=== PATIENT | female | born 1965 | race Caucasian/White ===

== ENCOUNTER → 2017-09-02 | Outpatient (CLI) | payer OTHER, MEDICARE | END | disposition home or self-care (01) | LOC: PCVCIMAG 13:54 | DX: I44.0 Atrioventricular block, first degree (principal); R06.09 Other forms of dyspnea; R00.1 Bradycardia, unspecified; R94.31 Abnormal electrocardiogram [ECG] [EKG]; Z87.891 Personal history of nicotine dependence | CPT/HCPCS: 93005; 93306 ==